=== PATIENT | male | born 1950 | race Caucasian/White ===

== ENCOUNTER → 2017-10-23 07:51 | Outpatient (CLI) | payer MEDICARE ==
[2017-10-23 10:39] LABS: BASOPHILS 0.4 % (0-2); EOSINOPHILS 2.2 % (0-7); HEMATOCRIT 45.9 % (42.0-54.0); HEMOGLOBIN 15.2 g/dL (13.5-17.5); IMMATURE GRANULOCYTES 0.2 % (0-5); LYMPHOCYTES 40.9 % (15-50); MCH 30.6 pg (26.0-34.0); MCHC 33.1 g/dL (31.0-37.0); MCV 92.4 fL (80.0-100.0); MEAN PLATELET VOLUME 9.8 fL (7.4-10.4); MONOCYTES 8.6 % (2-11); NEUTROPHILS 47.7 % (40-80); PLATELET COUNT 189 10x3/uL (130-400); RBC 4.97 10x6/uL (4.20-6.10); RDW 14.1 % (11.5-14.5); WBC 5.6 10x3/uL (4.8-10.8)
[2017-10-24 10:19] LABS: IMMUNOGLOBULIN A 120 mg/dL (61-437); IMMUNOGLOBULIN G 635 mg/dL (700-1600)
[2017-10-26 03:11] LABS: IMMUNOGLOBULIN E 20 IU/mL (0-100)
== END | disposition home or self-care (01) ==
LOC: D.RT 10-10 10:00 → D.LAB 10-10 11:00 → D.RT 07:51
PROVIDERS: Internal Medicine Pulmonary Disease
DX: J45.991 Cough variant asthma (principal)